=== PATIENT | male | born 1955 | race Caucasian/White ===

== ENCOUNTER 2017-11-26 14:44 | Emergency (ER) | payer OTHER ==
[~2017-11-26] VITALS: Ht 167.6 cm; Wt 98.9 kg
[2017-11-26] MEDS ORDERED: IBUPROFEN 400 MG TABLET ONE (15:00)
[2017-11-26] MEDS ORDERED: IBUPROFEN 400 MG TABLET PO ONE (15:00)
--- NOTE | 2017-11-26 15:00 | NUR ---
R WRIST PAIN AND SWELLING S/P TRIPPED AND FELL THIS AM. PT A/O X4. NEG ACUTE DISTRESS. VSS. STABLE CONDITION. SAFETY MEASURES IN PLACE.
--- NOTE | 2017-11-26 15:12 | NUR ---
X RAY AT BEDSIDE
[2017-11-26 16:14] VITALS: BP 149/86
== END 2017-11-26 16:15 | disposition home or self-care (01) ==
LOC: ER 14:45
DX: S62.111A Displaced fracture of triquetrum [cuneiform] bone, right wrist, initial encounter for closed fracture (principal); I10 Essential (primary) hypertension; E11.9 Type 2 diabetes mellitus without complications; E78.00 Pure hypercholesterolemia, unspecified; W01.0XXA Fall on same level from slipping, tripping and stumbling without subsequent striking against object, initial encounter; Y93.89 Activity, other specified; Y92.89 Other specified places as the place of occurrence of the external cause; Y99.8 Other external cause status
CPT/HCPCS: 29125; 73110; 73130; 99284; A4606; Z7610

== ENCOUNTER 2022-03-24 10:25 | Outpatient (CLI) | payer MEDICARE, OTHER | END 2022-03-24 23:59 | disposition home or self-care (01) | LOC: MSC 10:25 | PROVIDERS: ATTEND Anesthesiology | DX: G89.4 Chronic pain syndrome (principal); M54.50 Low back pain, unspecified; M54.12 Radiculopathy, cervical region; Z79.891 Long term (current) use of opiate analgesic; M79.606 Pain in leg, unspecified; M25.561 Pain in right knee; M25.562 Pain in left knee ==